=== PATIENT | female | born 1955 | race Caucasian/White ===

== ENCOUNTER 2017-12-10 07:44 | Day surgery (SDC) | payer BC ==
[~2017-12-10 07:44] MED LIST: Ropivacaine 49.25 ML, Ketorolac 30 MG, EPINEPHrine 0.5 MG, cloNIDine 80 MCG, Sodium Chl... INJECT SCH
[2017-12-10] MEDS ORDERED: Sodium Chloride 0.9% 10 ML Syringe FLUSH PRN (08:00)
[2017-12-10] MEDS ORDERED: Acetaminophen 500 MG Tab PO ONE (08:00)
[2017-12-10] MEDS ORDERED: ceFAZolin 2 GM in Premix Bag 1 BAG IV ONE (08:00)
[2017-12-10] MEDS ORDERED: Scopolamine 1.5 MG Transdermal Patch TRDERM ONE (08:00)
[2017-12-10] MEDS: Lactated Ringers 1,000 ML IV SCH ×2 (09:44→16:53)
[2017-12-10] MEDS ORDERED: Ropivacaine 49.25 ML, Ketorolac 30 MG, EPINEPHrine 0.5 MG, cloNIDine 80 MCG, Sodium Chl... INJECT SCH ×10 (11:00→13:00)
[2017-12-10] MEDS ORDERED: Ketamine 500 mg/10 ML MDV IV ONE (11:30)
[2017-12-10] MEDS ORDERED: Propofol 200 MG/20 ML SDV IV ONE (11:30)
[2017-12-10] MEDS ORDERED: Bupivacaine 0.75%/D5W 2 ML Amp INJECT ONE (11:30)
[2017-12-10] MEDS ORDERED: Ondansetron 4 MG/2 ML SDV IVPUSH ONE (11:30)
[2017-12-10] MEDS ORDERED: Midazolam 1 MG/ML 2 ML SDV IV ONE (11:30)
[2017-12-10] MEDS ORDERED: Lactated Ringers 1,000 ML IV ONE (11:30)
[2017-12-10] MEDS ORDERED: Dexamethasone 4 MG/ML 5 ML MDV IVPUSH ONE (11:30)
[2017-12-10] MEDS ORDERED: Ketorolac 30 MG/ML SDV IVPUSH ONE (11:30)
[2017-12-10] MEDS ORDERED: diphenhydrAMINE 50 MG/ML SDV IV ONE (11:30)
[2017-12-10] MEDS ORDERED: fentaNYL 100 MCG/2 ML SDV IV ONE (11:30)
[2017-12-10] MEDS ORDERED: VANCOMYCIN 500 MG ONE (12:47)
[2017-12-10] MEDS ORDERED: Morphine 2 MG/ML Syringe IVPUSH PRN (14:07)
[2017-12-10] MEDS ORDERED: Zolpidem 5 MG Tab PO PRN (14:07)
[2017-12-10] MEDS ORDERED: Ondansetron 4 MG/2 ML SDV IVPUSH PRN (14:07)
[2017-12-10] MEDS: Acetaminophen/oxyCODONE 325-5 MG Tab PO PRN ×2 (15:49→21:43)
--- NOTE | 2017-12-10 16:30 | OR ---
DATE OF OPERATION: 12/10/2017 SURGEON: Arvind Luong DO PREOPERATIVE DIAGNOSIS: Left knee primary osteoarthritis. POSTOPERATIVE DIAGNOSIS: Left knee primary osteoarthritis. PROCEDURE PERFORMED: Left knee total knee arthroplasty. RECORDER GRAVITY PROSPECTING: Terra Sorensen CNP. ANESTHESIA: Spinal plus conscious sedation. FLUIDS: Lactated Ringer's solution. ESTIMATED BLOOD LOSS: 50 mL. COMPLICATIONS: None. SPECIMENS: None. DISCHARGE DISPOSITION: Stable to PACU. INSTRUMENTATION: Biomet Vanguard, metal alternative, nickel free implant, 67.5 mm femur, 71 tibia, 14 mm polyethylene, vitamin E, anterior stabilized implant, and 35 mm polyethylene patella. HISTORY AND INDICATIONS FOR THE PROCEDURE: The patient was seen preoperatively in the clinic. She failed nonoperative treatment. Preoperative imaging confirmed the above mentioned diagnosis. Risks and benefits of the procedure were explained to the patient. Informed consent was obtained. DETAILS OF THE PROCEDURE: The patient was seen preoperatively by myself and the anesthesia staff in the preoperative holding area where the OP site was marked. She was brought to the operative suite by the Anesthesia staff where spinal anesthesia was administered. A well-padded tourniquet was placed on the left thigh. All extremities were found to be well padded. The left lower extremity was then prepped and draped in a sterile manner. A time-out was called identifying the correct patient, the correct procedure, and the correct site, and that antibiotics had been given within the appropriate period of time. The left lower extremity was then exsanguinated, tourniquet was raised to 250 mmHg for 33 minutes and let down during cementing. A midline incision was made, three fingerbreadths proximal to the patella down to the level of the tibial tubercle. A medial parapatellar arthrotomy was then made. A full synovectomy was performed as well as removing the infrapatellar fat pad. The patella was everted with a towel clip and then the knee flexed. A free hand cut was used on the patella and then the knee was extended. We measured a 35 patella, we drilled and then placed the trial. We then flexed the knee with the patella not everted and then reamed the distal femur. We then placed an intramedullary guide and then made our cut at 5 degree valgus, a 9 mm distal cut. We removed our pins and then used a posterior condylar guide which measured a 67.5 femur. I did use an devante wing to check that I would not notch. We then drilled our holes for the chamfer block. We then removed our guide and then placed the chamfer block and then made our anterior and posterior chamfer cuts. We then anteriorized the tibia and then used an extramedullary guide, going down the tibial spine in alignment with the second metatarsal pinned our extramedullary guide in place, I then made our proximal tibia cut and then using the Bovie electrocautery unit, removed the soft tissue from the bone, removing the bone. I used a Z retractor on the medial collateral ligament for protection as well as a sharp Hohmann laterally for protection of lateral collateral ligament. We then placed our tibial base plate which measured a 71, again in line with the tibial spine and the second metatarsal. I then placed our femur in place and then drilled our lugs and then trialled with a 10 and 12 mm poly. The 12 mm provided good stability. We then anteriorized the tibia again after removing the polyethylene insert and then reamed the proximal tibia and tamped it. We then removed all of our components. We then copiously irrigated with saline with pulsed lavage and then dried our bone and then cemented our components in place with a 12 mm polyethylene trial tibial insert in place in the knee in extension and slight internal rotation until it dried and let down the tourniquet. At this point, after it had dried, we then removed our polyethylene tibial insert and then removed any extra cement and controlled any bleeding, which was present, which was minimal. We then irrigated again with saline and placed our final polyethylene anterior stabilized insert which was a 14 mm. This provided excellent stability throughout range of motion. We then applied a gram of vancomycin in the joint. We then closed with #1 Stratafix, 3-0 Stratafix, and then Dermabond mesh. The patient was then transferred to her hospital bed and taken to the PACU in stable condition. Physician staffing assistant, Terra Sorensen NP, played an essential role in assisting in this case, helping to position the patient, retract structures as needed, as well as suturing and cutting sutures as indicated. Her presence improved patient's safety and decreased operative time. /[id number] BS/JEFF
[2017-12-10] MEDS: ceFAZolin 2 GM in Premix Bag 1 BAG IV SCH (18:08)
[2017-12-10] MEDS ORDERED: Ketorolac 30 MG/ML SDV IM PRN (19:00)
[2017-12-10] MEDS: Docusate Sodium 100 MG Cap PO SCH (20:30)
[2017-12-11] MEDS: ceFAZolin 2 GM in Premix Bag 1 BAG IV SCH ×2 (01:37→10:00)
[2017-12-11] MEDS: Lactated Ringers 1,000 ML IV SCH (01:37)
[2017-12-11] MEDS: Acetaminophen/oxyCODONE 325-5 MG Tab PO PRN ×2 (04:05→12:28)
[2017-12-11] MEDS ORDERED: Bisacodyl 5 MG Tab PO SCH (09:00)
[2017-12-11] MEDS ORDERED: Hydrochlorothiazide 12.5 MG Cap PO SCH (09:00)
[2017-12-11] MEDS ORDERED: Sertraline 50 MG Tab PO SCH (09:00)
[2017-12-11] MEDS: Docusate Sodium 100 MG Cap PO SCH (09:19)
--- NOTE | 2017-12-13 11:10 | CR ---
INDICATION: Post-op. LEFT KNEE: Frontal and lateral views of the left knee were obtained portable, post-operatively, and compared with 11/12/2017 pre-operatively. A TKA is noted , which appears to be in good position and alignment, without evidence of a complicating process identified. There is residual air in the joint space, compatible with a recent surgery. IMPRESSION: Satisfactory appearance post-op TKA. [place]
== END 2017-12-11 12:30 | disposition home or self-care (01) ==
LOC: FB.SDS 07:44 → FB.MS 14:30 → FB.SDS 12-11 12:30
PROVIDERS: ATTEND Orthopaedic Surgery
DX: M17.12 Unilateral primary osteoarthritis, left knee (principal); I10 Essential (primary) hypertension; F17.210 Nicotine dependence, cigarettes, uncomplicated; Z91.048 Other nonmedicinal substance allergy status; Z79.899 Other long term (current) drug therapy; Z79.2 Long term (current) use of antibiotics
CPT/HCPCS: 27447; 36415; 73560; 80053; 85025; 86850; 86900; 86901; 97110; 97116; 97161; 97165; A9270; J0171; J0690; J0735; J1100; J1200; J1885; J2250; J2405; J2704; J2795; J3010; J3370; J7050; J7120